=== PATIENT | male | born 1935 | race Caucasian/White ===

== ENCOUNTER 2020-11-08 15:02 | Inpatient (IN) | payer MEDICARE, OTHER ==
[~2020-11-08] VITALS: Ht 177.8 cm; Wt 79.6 kg
[2020-11-08 20:00] VITALS: BP 112/66
[2020-11-08 21:00] VITALS: BP 112/66
--- NOTE | 2020-11-08 21:00 | NUR ---
RN NOTES RECEIVED PATIENT FROM [facility], DIRECT ADMIT , PATIENT IS ALERT ORIENTED X4, ADMISSION INSTRUCTIONS WAS GIVEN, MAKE PATIENT COMFORTABLE, SKIN ASSESSMENT DONE, CALL LIGHT WITHIN REACH, [id number], WILL CONTINUE TO MONITOR
--- NOTE | 2020-11-08 22:00 | NUR ---
RN NOTES INFORMED CLINT CHRISTIANSON REGARDING DIRECT ADMISSION , HE WILL COME UP TO ASSESS THE PATIENT
[2020-11-08] MEDS ORDERED: MORPHINE SULFATE INJ 2 MG/ML DISP.SYRIN IV PRN (22:30)
[2020-11-08] MEDS ORDERED: ONDANSETRON HCL/PF 4 MG/2 ML VIAL IVP PRN (22:30)
--- NOTE | 2020-11-08 22:30 | NUR ---
RN NOTES CLINT CHANG-EMILY CAME UP AND TALKED TO THE PATIENT , HE WILL PUT THE ADMISSION ORDERS
[2020-11-09] VITALS (11 sets, daily range): BP systolic 116–148; BP diastolic 57–91
[2020-11-09] MEDS: PANTOPRAZOLE 40 MG VIAL IV SCH ×2 (00:05→22:35)
[2020-11-09] MEDS: IV D5/0.45 NACL 1,000 ML IV PRN ×2 (00:06→16:34)
[2020-11-09] MEDS ORDERED: TAMS-12 PO (05:04)
[2020-11-09] MEDS ORDERED: TRAZ-182 PO (05:04)
[2020-11-09] MEDS ORDERED: SENN-261 PO (05:04)
[2020-11-09] MEDS ORDERED: LISI-768 PO (05:04)
[2020-11-09] MEDS ORDERED: POLY17PO4 PO (05:04)
[2020-11-09] MEDS ORDERED: IPRA12.9 INH (05:04)
[2020-11-09] MEDS ORDERED: PANT40TA49 PO (05:04)
[2020-11-09] MEDS ORDERED: FINA5TAB3 PO (05:04)
[2020-11-09] MEDS ORDERED: CARV3.122 PO (05:04)
[2020-11-09] MEDS ORDERED: METF-440 PO (05:04)
[2020-11-09] MEDS ORDERED: DOCU-141 PO (05:04)
[2020-11-09] MEDS ORDERED: CARI350T PO (05:04)
[2020-11-09] MEDS ORDERED: ACET-73 PO (05:04)
[2020-11-09] MEDS ORDERED: MAGN400T26 PO (05:04)
[2020-11-09 06:30] LABS: BASOPHILS % (AUTO) 0.6 % (0.0-2.0); EOSINOPHILS % (AUTO) 3.6 % (0.0-6.0); HEMATOCRIT 30 % (39-51); HEMOGLOBIN 9.7 g/dL (13.5-17.5); LYMPHOCYTES # (AUTO) 1.4 K/uL (0.8-4.8); LYMPHOCYTES % (AUTO) 21.6 % (20.0-44.0); MEAN CORPUSCULAR HGB CONC 32 g/dl (31.0-36.0); MEAN CORPUSCULAR VOLUME 86 fL (80-96); MONOCYTES # (AUTO) 0.7 K/uL (0.1-1.30); MONOCYTES % (AUTO) 10.5 % (2.0-12.0); NEUTROPHILS # (AUTO) 4.2 K/uL (1.8-8.9); NEUTROPHILS % (AUTO) 63.7 % (43.0-81.0); PLATELET COUNT (AUTO) 421 K/uL (150-450); RED BLOOD CELL COUNT(AUTO) 3.49 MIL/uL (4.5-6.0); WHITE BLOOD COUNT (AUTO) 6.6 K/uL (4.3-11.0)
--- NOTE | 2020-11-09 06:45 | NUR ---
07RN NOTES AWAKE,MAKE PATIENT COMFORTABLE, PATIENT SIGNED THE CONSENT FOR HIS PROCEDURE TODAY, CALL LIGHT WITHIN REACH, [id number], PT. NEEDS ATTENDED
[2020-11-09 07:15] LABS: CALCIUM, SERUM 8.1 mg/dL (8.5-10.1); CREATININE 0.6 mg/dL (0.6-1.3); MAGNESIUM 1.6 mg/dL (1.8-2.4); POTASSIUM 4.3 mmol/L (3.5-5.1)
--- NOTE | 2020-11-09 07:31 | NUR ---
MS RN OPENING NOTES PATIENT RECEIVED AWAKE IN BED IN NO ACUTE SIGNS OF DISTRESS. A/O X4. ABLE TO MAKE NEEDS KNOWN, NO C/O PAIN AT THIS TIME. ON 02 VIA N/C @ 2LPM, TOLERATING WELL, BREATHING EVEN AND UNLABORED. IV ACCESS ON RIGHT WRIST #20 PATENT AND INTACT, IVF OF D5 NS @75MLS/HR INFUSING WELL, NO S/S OF INFILTRATION AT SITE NOTED. PT FOR SPINAL SURGERY TODAY BY DR PERAZA, NPO MAINTAINED. SAFETY MEASURES IN PLACE: BED LOCKED AND AT LOWEST POSITION, SIDE-RAILS UP X2. CALL LIGHT WITH EASY REACH OF PT. WILL CONTINUE TO MONITOR PT.
[2020-11-09] MEDS: Magnesium 1GM/D5W 100ML PREMIX 100 ML IV SCH ×2 (09:06→16:34)
[2020-11-09] MEDS ORDERED: methylPREDNISolone ACETATE 80 MG/ML VIAL ONE (09:10)
[2020-11-09] MEDS ORDERED: HEMOSTATIC MATRIX 8 ML 1 EACH PAD MC ONE (09:10)
[2020-11-09] MEDS ORDERED: BUPIVACAINE MPF 0.5% W/EPI INJ 30 ML VIAL ONE (09:10)
[2020-11-09] MEDS ORDERED: LIDOCAINE HCL/MPF 1% 30 ML VIAL IJ ONE (09:10)
[2020-11-09] MEDS ORDERED: METHYLENE BLUE 10 ML VIAL ONE (09:10)
--- NOTE | 2020-11-09 09:10 | NUR ---
RN NOTES PT PICKED-UP VIA HIS BED BY Inez LU PAT FOR SPINE SURGERY.
[2020-11-09] MEDS ORDERED: FENTANYL PF 100MCG/2ML AMPUL ONE ×2 (09:24→15:15)
[2020-11-09] MEDS ORDERED: ROCURONIUM BROMIDE 50 MG/5 ML ONE (09:26)
[2020-11-09] MEDS ORDERED: BACITRACIN OPHTH OINT 3.5 GM TUBE ONE (14:36)
--- NOTE | 2020-11-09 16:00 | NUR ---
RN NOTE PT WHEELED INTO ICU ROOM 259 IN BED, S/P LUMBAR SPINAL FUSION. PT A/Ox4, ON SIMPLE MASK 6L, SPO2 95%, NO S/S OF RESP DISTRESS OR SOB. PT STATES 3/10 BACK PAIN, WILL ADMIN MEDS ORDERED. PT HAS RT HAND #20 AND RT WRIST #20, CURRENTLY INFUSING LR TO GRAVITY. PT HAS RT ARM BRUISES, SACRAL REDNESS, LT BIG TOE REDNESS, AND A/P IVC FILTER IN RT GROIN, DRSG C/D/I, AND LUMBAR SURGICAL INCISION. PER SEMI DRIVER PAT, PT IS OK TO BEND AT THE WAIST TOLERATED BUT NO TWIST/ROTATING AT THE SPINE/WAIST. PT HAS LUMBAR WOUND DRAIN DRAINING MINIMAL SANGUIONOUS DRAINAGE. ALL PT SAFETY PRECAUTIONS IN PLACE, WILL CONT TO MONITOR. ALL VITALS WNL
--- NOTE | 2020-11-09 17:00 | NUR ---
RN N OTE PO MEDS NOT GIVEN, BEDSIDE SWALLOW EVAL NOT CONDUCTED D/T PT BEING UNABLE TO SIT UP IN BED/BEND AT THE WAIST D/T PAIN. PT STATES HE IS NOT HUNGRY AND CAN WAIT UNTIL TOMORROW TO EAT. IVP PAIN MEDS GIVEN
[2020-11-09] MEDS: METHOCARBAMOL (750MG) 750 MG TABLET PO SCH ×2 (17:01→18:00)
[2020-11-09] MEDS: KETOROLAC TROMETHAMINE 15 MG/ML VIAL IV SCH (17:02)
--- NOTE | 2020-11-09 17:15 | NUR ---
RN NOTES PT TRANSFERRED FROM SURGERY TO ICU RM 259-1. REPORT GIVEN TO TABITHA WOLF VIA TELEPHONE.
--- NOTE | 2020-11-09 17:20 | NUR ---
RN NOTE RN REPORT GIVEN VIA TELEPHONE BY TABITHA TILLEY
[2020-11-09] MEDS ORDERED: KETOROLAC TROMETHAMINE INJ 30 MG/ML VIAL IV SCH (18:00)
[2020-11-09] MEDS ORDERED: METHOCARBAMOL (750MG) 750 MG TABLET PO SCH (18:00)
[2020-11-09] MEDS ORDERED: DEXTROSE 50%-WATER 50 ML DISP.SYRIN IV PRN (19:00)
--- NOTE | 2020-11-09 19:00 | NUR ---
MANAGER CRITICAL CARE CLOSING NOTE PT IN STABLE CONDITION, PAIN 0/10. PT ON NC 5L, SPO2 98%, ALL PT SAFETY PRECAUTIONS IN PLACE. KARIS ENDORSED TO BRAZING MACHINE FEEDER RN
--- NOTE | 2020-11-09 19:30 | NUR ---
RN NOTES Received patient in bed AOX4. Breathing normal no SOB. Respiration even non labored. Denies any pain at this time. SR in Tele monitor. IV site RT wrist #20G, RT hand#20G D5 1/2 NS running at 75ml/hr. F/c intact yellow urine running via gravity. All safety measures in place, call light within reach. Will cont to monitor for carleen.
[2020-11-09] MEDS: BLOOD SUGAR DIAGNOSTIC 1 EACH STRIP VI SCH (22:27)
[2020-11-09] MEDS: *INSULIN REGULAR(HUMULIN R)HUM 100 UNIT/ML VIAL SQ PRN (22:30)
[2020-11-10] VITALS (26 sets, daily range): BP systolic 86–133; BP diastolic 28–85
[2020-11-10] MEDS: METHOCARBAMOL (750MG) 750 MG TABLET PO SCH ×4 (00:50→17:33)
[2020-11-10] MEDS: KETOROLAC TROMETHAMINE 15 MG/ML VIAL IV SCH ×5 (00:50→23:52)
[2020-11-10 04:23] LABS: BASOPHILS % (AUTO) 0.3 % (0.0-2.0); EOSINOPHILS % (AUTO) 0.1 % (0.0-6.0); HEMATOCRIT 29 % (39-51); HEMOGLOBIN 9.3 g/dL (13.5-17.5); LYMPHOCYTES # (AUTO) 1.6 K/uL (0.8-4.8); LYMPHOCYTES % (AUTO) 14.6 % (20.0-44.0); MEAN CORPUSCULAR HGB CONC 33 g/dl (31.0-36.0); MEAN CORPUSCULAR VOLUME 86 fL (80-96); NEUTROPHILS # (AUTO) 8.4 K/uL (1.8-8.9); PLATELET COUNT (AUTO) 405 K/uL (150-450); RED BLOOD CELL COUNT(AUTO) 3.35 MIL/uL (4.5-6.0); WHITE BLOOD COUNT (AUTO) 11.1 K/uL (4.3-11.0)
[2020-11-10 04:52] LABS: ALBUMIN 1.7 g/dL (3.4-5.0); BILIRUBIN,TOTAL 0.2 mg/dL (0.2-1.0); CALCIUM, SERUM 7.5 mg/dL (8.5-10.1); CREATININE 0.9 mg/dL (0.6-1.3); MAGNESIUM 1.8 mg/dL (1.8-2.4); PHOSPHORUS 2.4 mg/dL (2.5-4.9); POTASSIUM 4.3 mmol/L (3.5-5.1); TOTAL PROTEIN, SERUM 5.2 g/dL (6.4-8.2)
[2020-11-10] MEDS: IV D5/0.45 NACL 1,000 ML IV PRN (05:59)
--- NOTE | 2020-11-10 07:06 | NUR ---
RN NOTES No changes noted during shift. No s/s of acute distress noted. Breathing normal no SOB noted. spinal drainage intact draining well noted with 150ml bloody drainage. PRN pain medications were as ordered noted to be effective. F/c intact yellow urine running via gravity. All safety measures in place, call light within reach. Endorse to am nurse for carleen.
--- NOTE | 2020-11-10 07:30 | NUR ---
OPENING NOTE: REPORT RECEIVED FROM CONRAD LU. PT ALERT OX4, ABLE TO VOICE CONCERNS. NEWBY CATHETER IN PLACE DRAINING WITHOUT DIFFICULTY. HEMOVAC IN PLACE TO BACK, COMPRESSED PER PROTOCOL AND MD ORDERS. PT ON 5L NASAL CANNULA. PT CHECKED ON HOURLY AND PRN BY NURSING STAFF.
[2020-11-10] MEDS: BLOOD SUGAR DIAGNOSTIC 1 EACH STRIP VI SCH ×4 (08:03→23:00)
[2020-11-10] MEDS: INSULIN REGULAR, HUMAN 100 UNIT/ML 3 ML VIAL SQ PRN ×2 (08:43→12:55)
--- NOTE | 2020-11-10 09:02 | NUR ---
WOUND CARE CONSULT: PT SEEN FOR SKIN ASSESSMENT AND NOTED TO HAVE INTACT SKIN WITH CLEAN,DRY INTACT LUMBAR SURGICAL DRESSING AND HEMOVAC. DEFER TO SURGEON FOR SURGICAL SITE AND HEMOVAC. RECOMMENDATIONS MADE FOR SKIN PROTECTION. DISCUSSED WITH NURSING STAFF. MD IN AGREEMENT WITH PLAN OF CARE.
[2020-11-10] MEDS ORDERED: K PHOS NEUTRAL 250 MG TABLET PO ONE (10:00)
--- NOTE | 2020-11-10 10:05 | NUR ---
DR TINSLEY NOTIFIED OF BP OF 86/41. RN RECHECKED BP A FEW TIMES. ORDERS GIVEN FOR 500ML NS BOLUS.
[2020-11-10] MEDS ORDERED: IV NS 0.9% 500 ML IV ONE (10:30)
[2020-11-10] MEDS: *INSULIN REGULAR(HUMULIN R)HUM 100 UNIT/ML VIAL SQ PRN (17:39)
--- NOTE | 2020-11-10 18:18 | NUR ---
PT TRANSFERRED BY BED WITH RN TO ROOM 329-1 AT 1810. BEDSIDE REPORT GIVEN TO MOHSEN LU. PT BELONGINGS SENT WITH PATIENT INCLUDING PATIENTS WALKER, CELL PHONE, PHONE CLOUD SECURITY ARCHITECT, EYE GLASSES AND PT INSTRUCTIONS. PT'S DAUGHTER IN LAW NOTIFIED OF ROOM CHANGE PRIOR TO MOVING PATIENT. RN AND TAILINGS DAM LABORER AT BEDSIDE PRIOR TO EDUCATION DEPARTMENT CHAIR LEAVING.
--- NOTE | 2020-11-10 19:37 | NUR ---
MS/RN CLOSING NOTES RECEIVED REPORT FROM DONALD COMMERCIAL ILLUSTRATOR. PATIENT IS ON BED, AWAKE ALERT AND ORIENTED X4. PATIENT IS ON 5L OXYGEN VIA NASAL CANNULA SAO2 99% SATURATING WELL. PATIENT IN NO APPARENT RESPIRATORY DISTRESS NOTED. NO COMPLAINED OF PAIN NOTED AT THIS TIME. SAFETY PRECAUTIONS WAS IN PLACED. BED IN LOWEST POSITION AND LOCKED. SIDE RAILS UP X2. CALL LIGHT WITHIN REACH. WILL ENDORSED TO POTATO SORTER FOR KARIS.
--- NOTE | 2020-11-10 20:40 | NUR ---
RN KARIS NOTE RECEIVED REPORT FROM PAWEL LU. PATIENT AWAKE, ABLE TO MAKE NEEDS KNOWN. A/O X 4. PATIENT HAS A HEMOVAC DRAIN, DRAINING RED DRAINAGE. DRESSING INTACT. PATIENT HAS RIGHT FOREARM AND RIGHT HAND IV ACCESS. PATENT AND INTACT. IV FLUID D5 1/2 NS RUNNING AT 75 ML/HR. PATIENT HAS A NEWBY CATH IN PLACE DRAINING YELLOW URINE VIA GRAVITY. PATIENT ON 5 L OF OXYGEN SUPPLEMENTATION, PATIENT OBSERVED TO BE COUGHING. NO SOB. SAFETY MEASURES IN PLACE: BED IN LOCKED AND LOWEST POSITION, CALL LIGHT WITHIN REACH, SIDE RAILS UP. WILL MONITOR PATIENT CLOSELY.
--- NOTE | 2020-11-10 22:00 | NUR ---
BS 101 MG/DL. NO COVERAGE GIVEN. WILL MONITOR PATIENT FOR HYPOGLYCEMIA/HYPERGLYCEMIA.
--- NOTE | 2020-11-10 22:45 | NUR ---
RN NOTE HEMOVAC FOUND DISCONNECTED FROM PATIENT. PATIENT IS STATES " I FELT SOMETHING POKING ME SO I PULLED IT". COVERED WITH DRY DRESSING FOR NOW. WILL NOTIFY SURGEON.
[2020-11-10] MEDS: PANTOPRAZOLE 40 MG VIAL IV SCH (23:00)
--- NOTE | 2020-11-10 23:00 | NUR ---
MD NOTIFICATION CALLED DR. PERAZA ABOUT THE SITUATION, MD INSTRUCTIONS WERE TO CLAMP IT NEAREST TO THE DRESSING TIGHT POSSIBLE AND COVER WITH DRY DRESSING. WILL LOOK FOR SUPPLIES CLAMP HEMOSTAT NOT STOCKED IN UNIT. WILL CLAMP ONCE FOUND.
[2020-11-10] MEDS ORDERED: METHOCARBAMOL (500MG) 500 MG TABLET ONE (23:47)
[2020-11-11] VITALS: BP 120/57
--- NOTE | 2020-11-11 | NUR ---
ROBAXIN NOT FOUND IN ICU [place], CHARGE NURSE NOTIFIED AND NURSING BOTTLE SORTER WILL PROVIDE ROBAXIN ONCE STOCK IS FOUND.
[2020-11-11] MEDS ORDERED: METHOCARBAMOL (750MG) 750 MG TABLET ONE ×2 (00:14→05:21)
[2020-11-11] MEDS: IV D5/0.45 NACL 1,000 ML IV PRN ×2 (00:27→17:11)
[2020-11-11] MEDS: METHOCARBAMOL (750MG) 750 MG TABLET PO SCH ×4 (00:56→18:55)
[2020-11-11 04:00] VITALS: BP 121/44
[2020-11-11] MEDS: KETOROLAC TROMETHAMINE 15 MG/ML VIAL IV SCH ×4 (06:02→22:16)
[2020-11-11 06:35] LABS: CALCIUM, SERUM 7.4 mg/dL (8.5-10.1); CREATININE 0.8 mg/dL (0.6-1.3); PHOSPHORUS 2.2 mg/dL (2.5-4.9); POTASSIUM 3.6 mmol/L (3.5-5.1)
[2020-11-11] MEDS: BLOOD SUGAR DIAGNOSTIC 1 EACH STRIP VI SCH ×4 (06:41→22:29)
[2020-11-11] MEDS: INSULIN REGULAR, HUMAN 100 UNIT/ML 3 ML VIAL SQ PRN ×2 (06:42→12:51)
--- NOTE | 2020-11-11 06:42 | NUR ---
BS 131 MG/DL. NO COVERAGE GIVEN PATIENT HAS HX OF LOW BS.
--- NOTE | 2020-11-11 07:28 | NUR ---
RN CLOSING NOTE PATIENT IN BED, AWAKE. PATIENT NOT IN ANY APPARENT DISTRESS. STILL ON 5 L OF OXYGEN VIA NASAL CANNULA. SAFETY MEASURES MAINTAINED. SPINAL FUSION DRESSING ON THE BACK INTACT, HEMOVAC TUBING STILL CLAMPED AND COVERED WITH STERILE DRY DRESSING. NEWBY CATHETER IN PLACE DRAINING YELLOW URINE VIA GRAVITY. IV FLUIDS STILL ONGOING. ALL NEEDS MET AND ATTENDED. ALL ORDERS CARRIED OUT. ENDORSED TO DAY SHIFT NURSE FOR KARIS.
[2020-11-11 08:00] VITALS: BP 99/50
[2020-11-11] MEDS ORDERED: K PHOS NEUTRAL 250 MG TABLET PO ONE (09:30)
--- NOTE | 2020-11-11 10:30 | NUR ---
back hemovac removed by surgeon.
--- NOTE | 2020-11-11 11:30 | NUR ---
given neutra phos for posphorous replacement.
--- NOTE | 2020-11-11 13:17 | NUR ---
RN NOTE DR. ALVINA JEONG FOR VIT B 12 IM INJ 1,000MCG/ML VIAL ONCE. ORDER CARRIED OUT. Addendum: 11/11/20 at 1318 by MORIS PIERRE RN DR. ALVINA WATSON
[2020-11-11] MEDS ORDERED: CYANOCOBALAMIN 1,000 MCG/ML VIAL IM ONE (14:00)
[2020-11-11 16:00] VITALS: BP 103/49
--- NOTE | 2020-11-11 16:58 | NUR ---
rt. forearm iv infiltrated and removed.
--- NOTE | 2020-11-11 19:00 | NUR ---
MS RN OPENING NOTE PT AWAKE IN BED AT THIS TIME. AOX4, ABLE TO MAKE NEEDS KNOWN. NO SOB NOTED. NO C/O PAIN AT THIS TIME, NO S/O ANY ACUTE DISTRESS NOTED. RESPIRATIONS EVEN AND UNLABORED, STABLE ON 5LNC .HEMOVAC AND NEWBY CATHETER IN PLACE. IV ACCESS R EXT JUGULAR G#20 INTACT AND FLUSHING WELL. SAFETY PRECAUTIONS IN PLACE AND MAINTAINED AT ALL TIMES. BED IN LOWEST LOCKED POSITION, HOB ELEVATED, SIDE RAILS UP X2, CALL LIGHT AND TABLE WITHIN REACH. FAMILY AT BEDSIDE. WILL CONTINUE TO MONITOR
[2020-11-11 20:00] VITALS: BP 104/54
--- NOTE | 2020-11-11 22:29 | NUR ---
BS 96
[2020-11-12] VITALS: BP 101/49
[2020-11-12] MEDS: METHOCARBAMOL (750MG) 750 MG TABLET PO SCH ×4 (00:57→17:25)
[2020-11-12 04:00] VITALS: BP 125/67
[2020-11-12] MEDS: KETOROLAC TROMETHAMINE 15 MG/ML VIAL IV SCH ×3 (05:46→12:06)
[2020-11-12 06:00] VITALS: BP 104/55
--- NOTE | 2020-11-12 06:00 | NUR ---
MS RN CLOSING NOTE PT IS IN BED WITH EYES CLOSED, EASY TO AROUSE. PT IS STABLE ON 5L NC, NO SOB NOTED. NO S/S OF RESPIRATORY DISTRESS. PT IS BEDREST AND COMFORT CARE. PT IS ON EXTERNAL WELL REACTIVATOR OPERATOR READING SR WITH PVC @71. IV ACCESS IS INTACT, PATENT, AND FLUSHING WELL. ALL NEEDS HAVE BEEN MET. ALL CARE, NEEDS, MEDICATIONS, AND TREATMENT ADMINISTERED, NEWBY CARE PROVIDED AND DRAINED ANTICIPATED PER ORDER. PAIN MANAGEMENT ADMINISTERED PER ORDER. PT REPOSITIONED Q2H AND PRN. SAFETY, SEIZURE, AND ASPIRATION PRECAUTIONS MAINTAINED AT ALL TIMES. BED IN LOWEST LOCKED POSITION, HOB ELEVATED, SIDE RAILS UPX2. CALL LIGHT AND TABLE WITHIN REACH. WILL ENDORSE TO ONCOMING NURSE FOR KARIS.
--- NOTE | 2020-11-12 06:13 | NUR ---
BS 99
[2020-11-12] MEDS: BLOOD SUGAR DIAGNOSTIC 1 EACH STRIP VI SCH ×4 (07:22→21:31)
--- NOTE | 2020-11-12 07:37 | NUR ---
TELE/RN OPENING NOTES RECEIVED PATIENT ON BED AWAKE, ALERT AND ORIENTED X4. PATIENT IN ROOM AIR SATURATING WELL. PATIENT IN NO APPARENT RESPIRATORY DISTRESS NOTED. NO COMPLAINED OF PAIN NOTED AT THIS TIME. TELE MONITOR READING SINUS RHYTHM WITH PVC 72 BPM. WILL CONTINUE TO MONITOR.
[2020-11-12 07:43] LABS: CALCIUM, SERUM 7.5 mg/dL (8.5-10.1); CREATININE 0.6 mg/dL (0.6-1.3); POTASSIUM 3.4 mmol/L (3.5-5.1)
[2020-11-12] MEDS: PANTOPRAZOLE 40 MG TABLET.DR PO SCH (08:28)
[2020-11-12 09:09] VITALS: BP 100/50
[2020-11-12] MEDS ORDERED: POTASSIUM CHLORIDE 20 MEQ TAB.PRT.SR PO SCH (10:30)
[2020-11-12 12:00] VITALS: BP 94/46
--- NOTE | 2020-11-12 12:00 | NUR ---
TELE/RN NOTES PATIENT REFUSED FOR REGULAR INSULIN 2 UNIT. WILL CONTINUE TO MONITOR.
--- NOTE | 2020-11-12 12:35 | NUR ---
RN NOTES PATIENT OXYGEN WAS TITRATED TO 2 L VIA NASAL CANNULA PATIENT SATURATION 96%-97% SATURATING WELL. WILL CONTINUE TO MONITOR.
--- NOTE | 2020-11-12 15:05 | NUR ---
TELE/RN NOTES DR. SHRAVAN HIGHTOWER RAPID COVID 19 TEST STAT. NOTED AND CARRIED OUT.
[2020-11-12] MEDS: ACETAMINOPHEN 325 MG TABLET PO PRN (17:23)
[2020-11-12] MEDS: IV D5/0.45 NACL 1,000 ML IV PRN (17:27)
--- NOTE | 2020-11-12 17:54 | NUR ---
CONTRACT MODELER NOTE RECEIVED PATIENT FROM [facility] - PATIENT WAS SUPPOSED TO DC HOME BUT RAPID TESTED POSITIVE FOR COVID19. PATIENT IS STABLE, A/O X4. 148/54, HR 80 OXYGEN SATURATION AT 94% TEMP 100.1. PATIENT IS COUGHING AND PRODUCING PHLEGM. IV ACCESS TO RIGHT JUGULAR #20 - RUNNING D5 1/2NS @ 75ML/HR. PATIENT WAS GIVEN TYLENOL FOR FEVER. SAFETY PRECAUTIONS IN PLACE. CALL LIGHT WITHIN REACH. WILL CONTINUE TO MONITOR.
--- NOTE | 2020-11-12 17:59 | NUR ---
RN NOTES PATIENT IS AWAKE, ALERT AND ORIENTED X4. PATIENT IN 2 L OXYGEN VIA NASAL CANNULA SATURATION 97%. PATIENT IN NO APPARENT RESPIRATORY DISTRESS. NO COMPLAINED NOTED AT THIS TIME. PATIENT WAS TRANSFERRED TO [facility] VIA GURNEY PER HOSPITAL PROTOCOL AND PATIENT HAD TWO POSITIVE RAPID RESULT. DR. OBRIEN WAS AWARE AND ORDER TO TRANSFER THE PATIENT. PATIENT TEMP 100.1 BP 125/80 PULSE 71 RR 18 TEMP 98. REPORT WAS GIVEN TO VERNA AND FOR KARIS.
--- NOTE | 2020-11-12 18:31 | NUR ---
YIELD ANALYST CLOSING NOTE PATIENT CURRENTLY LYING IN BED, RESTING COMFORTABLY. EASY TO AROUSE. A/O X4. STABLE ON 2L O2 VIA NASAL CANNULA - NO SOB, NO DISTRESS/DISCOMFORT NOTED. PATIENT STATES NO PAIN AT THIS TIME. IV ACCESS TO RIGHT JUGULAR #20 - RUNNING D5 1/2 NS @ 75ML/HR. ON TELE MONITOR - READS SR WITH PVC'S @ 78. NEWBY CATHETER IN PLACE AND INTACT - DRAINING URINE TO GRAVITY. SAFETY MEASURES IN PLACE. CALL LIGHT WITHIN REACH. WILL ENDORSE TO METAPHYSICIAN NURSE FOR KARIS.
[2020-11-12] MEDS: INSULIN REGULAR, HUMAN 100 UNIT/ML 3 ML VIAL SQ PRN (21:48)
--- NOTE | 2020-11-12 22:00 | NUR ---
RN NOTES, PATIENT REFUSED PICTURE FOR SKIN ISSUES, EDUCATION PROVIDED X3, STILL REFUSED, CHARGE NURSE AWARE.
[2020-11-13] VITALS: BP 102/51
[2020-11-13] MEDS: METHOCARBAMOL (750MG) 750 MG TABLET PO SCH ×5 (00:12→23:55)
--- NOTE | 2020-11-13 01:05 | NUR ---
RN NOTES, NOTED PATIENT WITH BIGEMINY AND PVCS IN THE TELE MONITOR, PATIENT A/O NO CHANGE IN LOC, DENIES/CHEST PAIN OR ANY DISCOMFORT, INFORMED TO CLINT CHANG NP AND REPLIED WIT ORDERS FOR MAGNESIUM LAB STAT, POTASSIUM REPLACED IN AM, AND CARDIOLOGY CONSULT WITH DR STOCKTON, PATIENT IN CONTINUOUS O2 MONITORING, ALL ORDERS NOTED, AND CARRIED OUT.
--- NOTE | 2020-11-13 02:38 | NUR ---
RN NOTES RELIED RESULTS FOR MAGNESIUM TO CLINT CHANG NP AND HE REPLIED WITH ORDERS FOR I GRAM MAGNESIUM SULFATE IV, ORDER NOTED AND CARRIED OUT.
[2020-11-13] MEDS ORDERED: Magnesium 1GM/D5W 100ML PREMIX 100 ML IV SCH (03:00)
[2020-11-13 04:00] VITALS: BP 127/68
--- NOTE | 2020-11-13 06:40 | NUR ---
RN NOTE PATIENT IS IN BED AOX4, NO SOB/ACUTE DISTRESS NOTED, KEEPING O2 96-99%, NO SIGNIFICANT CHANGE IN CONDITION DURING THE NIGHT, BED LOCKED IN THE LOWEST POSITION, CALL LIGHT WITHIN REACH, REMAINED STABLE THROUGHOUT SHIFT, WILL ENDORSE CONTINUITY OF CARE TO ONCOMING NURSE.
--- NOTE | 2020-11-13 07:32 | NUR ---
FONDANT PUFF MAKER OPENING NOTES RECEIVED PATIENT AWAKE IN BED. ALERT AND ORIENTED X4. NO SIGNS OR SYMPTOMS OF DISTRESS NOTED. NO SOB. NO COMPLAINTS OF PAIN AT THIS TIME. IV ACCESS PATENT AND INTACT. SAFETY MEASURES IN PLACE WITH BED AT LOW POSITION, SIDE RAILS UP X2. CALL LIGHT IS WITHIN REACH. WILL CONTINUE TO MONITOR PATIENT THROUGHOUT SHIFT.
[2020-11-13 07:38] LABS: CALCIUM, SERUM 7.8 mg/dL (8.5-10.1); CREATININE 0.8 mg/dL (0.6-1.3); POTASSIUM 3.5 mmol/L (3.5-5.1)
[2020-11-13] MEDS: BLOOD SUGAR DIAGNOSTIC 1 EACH STRIP VI SCH ×4 (08:26→21:46)
[2020-11-13] MEDS: PANTOPRAZOLE 40 MG TABLET.DR PO SCH (08:57)
[2020-11-13] MEDS: Magnesium 1GM/D5W 100ML PREMIX 100 ML IV SCH ×2 (10:11→10:37)
[2020-11-13] MEDS: IV D5/0.45 NACL 1,000 ML IV PRN (10:11)
[2020-11-13] MEDS: *INSULIN REGULAR(HUMULIN R)HUM 100 UNIT/ML VIAL SQ PRN ×2 (12:24→21:46)
[2020-11-13] MEDS: ACETAMINOPHEN 325 MG TABLET PO PRN (16:42)
--- NOTE | 2020-11-13 18:50 | NUR ---
ADVERTISING ASSISTANT CLOSING NOTES PATIENT AWAKE IN BED. ALERT AND ORIENTED X4. NO SIGNS OR SYMPTOMS OF DISTRESS NOTED. NO SOB. NO COMPLAINTS OF PAIN AT THIS TIME. IV ACCESS RNECK #20 PATENT AND INTACT. SAFETY MEASURES IN PLACE WITH BED AT LOW POSITION, SIDE RAILS UP X2. CALL LIGHT AND BEDSIDE TABLE IS WITHIN REACH. ALL NEEDS MET THROUGHOUT SHIFT. WILL ENDORSE CONTINUITY OF CARE TO ONCOMING SHIFT.
[2020-11-13 20:00] VITALS: BP 127/72
--- NOTE | 2020-11-13 20:06 | NUR ---
RN NOTE PATIENT IN BED RESTING COMFORTABLY. ALERT AND ORIENTED X4. ON O2 2L VIA NASAL CANNULA, O2 SAT 99%. NO SIGNS OF DISTRESS. DENIES ANY PAIN OR DISCOMFORT. IV ACCES ON RIGHT IJ D5 1/2 NS @ 75ML/HR. NO SIGNS OF INFILTRATION. BED LOCKED AND IN LOWEST POSITION. CALL LIGHT WITHIN REACH. ALL NEEDS ANTICIPATED.
--- NOTE | 2020-11-13 22:53 | NUR ---
RECEIVED CALL FROM LAB, SPOKE TO JEFRY WITH COVID PCR RESULTS POSITIVE. ISOLATION PRECAUTIONS OBSERVED.
[2020-11-14] VITALS: BP 132/66
[2020-11-14] MEDS: IV D5/0.45 NACL 1,000 ML IV PRN (01:29)
[2020-11-14 04:00] VITALS: BP 138/62
[2020-11-14] MEDS: METHOCARBAMOL (750MG) 750 MG TABLET PO SCH (05:21)
[2020-11-14 06:33] LABS: CALCIUM, SERUM 7.5 mg/dL (8.5-10.1); CARBON DIOXIDE 29 mmol/L (21-32); CHLORIDE 104 mmol/L (98-107); CREATININE 0.5 mg/dL (0.6-1.3); GLUCOSE 115 mg/dL (74-106); MAGNESIUM 1.6 mg/dL (1.8-2.4); POTASSIUM 3.3 mmol/L (3.5-5.1); SODIUM SERUM 138 mmol/L (136-145); UREA NITROGEN, BLOOD 9 mg/dL (7-18)
--- NOTE | 2020-11-14 06:53 | NUR ---
RN NOTE PATIENT IN BED RESTING COMFORTABLY. ALERT AND ORIENTED X4. ON O2 5L VIA NASAL CANNULA, O2 SAT 98%. NO SIGNS OF DISTRESS. IV ACCESS ON RIGHT IJ D5 1/2 NS @ 75ML/HR. NO SIGNS OF INFILTRATION. ALL DUE MEDS GIVEN ORDERED. BED LOCKED AND IN LOWEST POSITION. CALL LIGHT WITHIN REACH. WILL ENDORSE TO AM SHIFT.
[2020-11-14] MEDS: BLOOD SUGAR DIAGNOSTIC 1 EACH STRIP VI SCH (07:30)
--- NOTE | 2020-11-14 07:30 | NUR ---
RN OPENING NOTES Patient received in bed on 5 liters 02 via n/c. No s/s of respiratory distress. Patient noted with cox cath with yellow urine noted. HOB kept elevated. Will continue to monitor. Call light with in reach.
[2020-11-14 08:00] VITALS: BP 106/50
[2020-11-14] MEDS: Magnesium 1GM/D5W 100ML PREMIX 100 ML IV SCH ×2 (08:51→10:04)
[2020-11-14] MEDS: PANTOPRAZOLE 40 MG TABLET.DR PO SCH (08:52)
[2020-11-14] MEDS ORDERED: POTASSIUM CHLORIDE 20 MEQ TAB.PRT.SR PO ONE (09:00)
[2020-11-14] MEDS: INSULIN REGULAR, HUMAN 100 UNIT/ML 3 ML VIAL SQ PRN (09:18)
--- NOTE | 2020-11-14 10:30 | NUR ---
Patient's K+ and Mg+ replaced per md orders.
--- NOTE | 2020-11-14 11:54 | NUR ---
Patient was discharged to [facility] at apprx 11:30 am with Ambulance. Patient is alert and oriented x 3. On 5 liters 02 via n/c with 02 sat of 98%. Vitals WNL. Clean and dry and in stable condition. Report given to TABITHA Rosa. Patient kept clean and dry.
== END 2020-11-14 10:00 | DRG 456 ==
LOC: MED 20:48 → ICU 11-09 13:56 → MED 11-10 18:08 → TELE 11-10 19:43 → TELE1 11-12 16:59
PROVIDERS: ADMIT Nurse Practitioner Family
PROC: 01NB0ZZ Release Lumbar Nerve, Open Approach (ICD-10-PCS; principal; 2020-11-09)
PROC: 0SB20ZZ Excision of Lumbar Vertebral Disc, Open Approach (ICD-10-PCS; 2020-11-09)
PROC: 0SG107J Fusion of 2 or more Lumbar Vertebral Joints with Autologous Tissue Substitute, Posterior Approach, Anterior Column, Open Approach (ICD-10-PCS; 2020-11-09)
PROC: 0SG30KJ Fusion of Lumbosacral Joint with Nonautologous Tissue Substitute, Posterior Approach, Anterior Column, Open Approach (ICD-10-PCS; 2020-11-09)
PROC: 30233N1 Transfusion of Nonautologous Red Blood Cells into Peripheral Vein, Percutaneous Approach (ICD-10-PCS; 2020-11-09)
DX: M80.88XA Other osteoporosis with current pathological fracture, vertebra(e), initial encounter for fracture (principal); U07.1 COVID-19; I50.32 Chronic diastolic (congestive) heart failure; D68.59 Other primary thrombophilia; M48.061 Spinal stenosis, lumbar region without neurogenic claudication; I11.0 Hypertensive heart disease with heart failure; E11.9 Type 2 diabetes mellitus without complications; M47.26 Other spondylosis with radiculopathy, lumbar region; N40.0 Benign prostatic hyperplasia without lower urinary tract symptoms; Z86.711 Personal history of pulmonary embolism; Z95.828 Presence of other vascular implants and grafts; Z79.84 Long term (current) use of oral hypoglycemic drugs; M89.8X8 Other specified disorders of bone, other site
CPT/HCPCS: 36415; 72100-TC; 80048-TC; 80053-TC; 82962-TC; 83735-TC; 84100-TC; 85025-TC; 86850-TC; 87081-TC; 97110-TC; 97112-TC; 97116-TC; 97530-TC; A6209; C1713; C1751; C9113; G0378; J0690; J1040; J1100; J1815; J1885; J2270; J2370; J2405; J2704; J3010; J3420; J3475; J3490; J7030; J7040; J7050; P9016; Q9968; U0003